=== PATIENT | female | born 1985 | race African-American/Black ===

== ENCOUNTER 2019-12-05 03:50 | Emergency (ER) | payer BC ==
[2019-12-05] MEDS ORDERED: Oseltamivir 75 MG Cap PO ONE (04:25)
[2019-12-05] MEDS ORDERED: FLU Vacc QS2019-20(6MOS+)/PF 60 MCG/0.5 ML SYRINGE IM ONE (04:30)
--- NOTE | 2019-12-05 04:39 | EDM.PDOC ---
ED HPI GENERAL MEDICAL PROBLEM - General Chief Complaint: General Stated Complaint: POSSIBLE INFLUENZA AND ITCHY Time Seen by Provider: 12/05/19 04:08 Source of Information: Reports: Patient History Limitations: Reports: No Limitations - History of Present Illness INITIAL COMMENTS - FREE TEXT/NARRATIVE: Ms. Carmichael is a very pleasant 34-year-old woman with a past medical history significant for generalized anxiety disorder, ordinarily on alprazolam 2 mg po prn, but out of them since 07/08/2019, who now presents to the ED with generalized pruritus that began around 22:30 to 23:00 tonight, followed by generalized body aches and nasal congestion around 01:30. She has had nausea, but no emesis, abdominal pain, abdominal cramps, or diarrhea. No ear or throat pain. No lip or tongue swelling. No dyspnea or wheezing. She took 25 mg of Benadryl around 23:00. The patient states that she had similar symptoms about 11 years ago, and was clinically diagnosed with influenza, although she recalls that she also had nausea, vomiting, and watery diarrhea at that time. The patient denies recent fever, chills, cough, dyspnea, chest pain, palpitations, nausea, vomiting, constipation, diarrhea, abdominal pain, urinary symptoms, recent weight gain or weight loss, recent bloody bowel movements or black bowel movements, recent joint aches, headaches, or rashes. Here in the ED, the patient is found to be slightly bradycardic at 56 bpm, otherwise, she is hemodynamically stable, afebrile, saturating 99% on room air. The patient does not have a PCP. She did not receive an influenza vaccine this season, but agreed to receive one here today. Generalized Pain Score (Numeric/FACES): 7 - Related Data Allergies Allergy/AdvReac Type Severity Reaction Status Date / Time cigarette smoke Allergy Difficulty Verified 12/05/19 03:59 Breathing latex Allergy Hives Verified 12/05/19 03:59 pineapple Allergy Hives Verified 12/05/19 03:59 Home Meds: Home Meds ALPRAZolam [Xanax] 0.5 mg PO ONCALL PRN 12/05/19 [History] Albuterol [Proventil HFA] 1 puff INH Q6H 12/05/19 [History] Oseltamivir [Tamiflu] 1 cap PO Q12H #9 cap 12/05/19 [Rx] diphenhydrAMINE [Benadryl] 25 mg PO ONCALL PRN 12/05/19 [History] Past Medical History Respiratory History: Reports: Asthma (PFT-proven) Musculoskeletal History: Reports: Back Pain, Chronic (scoliosis) Neurological History: Reports: Migraines Psychiatric History: Reports: Anxiety (untreated since 07/08/2019) - Past Surgical History HEENT Surgical History: Reports: Adenoidectomy, Tonsillectomy Social & Family History - Tobacco Use Smoking Status *Q: Never Smoker - Alcohol Use Alcohol Use History: Yes Alcohol Use Frequency: Rarely - Recreational Drug Use Recreational Drug Use: No - Living Situation & Occupation Living situation: Reports: Single, with Significant Other, with Family (3 kids) 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 ED EXAM, GENERAL - Physical Exam Exam: See Below Exam Limited By: No Limitations General Appearance: Alert, WD/WN, No Apparent Distress Eye Exam: Bilateral Eye: EOMI, Normal Inspection Ears: Normal External Exam, Normal Canal, Hearing Grossly Normal, Normal TMs Nose: Normal Inspection, Normal Mucosa, No Blood Throat/Mouth: Normal Inspection, Normal Lips (No swelling), Normal Teeth, Normal Gums, Normal Oropharynx (No tongue or uvular swelling), Normal Voice, No Airway Compromise Head: Atraumatic, Normocephalic Neck: Normal Inspection, Supple, Non-Tender, Full Range of Motion. No: Lymphadenopathy (L), Lymphadenopathy (R) Respiratory/Chest: No Respiratory Distress, Lungs Clear, Normal Breath Sounds, No Accessory Muscle Use. No: Decreased Breath Sounds, Crackles, Rhonchi, Wheezing, Stridor, Prolonged Expiration Cardiovascular: Normal Peripheral Pulses, Regular Rate, Rhythm, No Edema, No Gallop, No JVD, No Murmur, No Rub Peripheral Pulses: 4+: Radial (L), Radial (R) GI/Abdominal: Normal Bowel Sounds, Soft, Non-Tender, No Organomegaly, No Distention, No Abnormal Bruit, No Mass (Female) Exam: Deferred Rectal (Female) Exam: Deferred Back Exam: Normal Inspection, Full Range of Motion, NT Extremities: Normal Inspection, Normal Range of Motion, No Pedal Edema, Normal Capillary Refill Neurological: Alert, Oriented, Normal Cognition, No Motor/Sensory Deficits Psychiatric: Normal Affect Skin Exam: Warm, Dry, Intact, Normal Color, No Rash Course - Vital Signs Last Recorded V/S: Last Vital Signs Temp 36.4 C 12/05/19 04:00 Pulse 56 L 12/05/19 04:00 Resp 19 12/05/19 04:00 BP 131/81 12/05/19 04:00 Pulse Ox 99 12/05/19 04:00 - Orders/Labs/Meds Orders: Active Orders 24 hr Category Date Time Status Influenza Vaccine Charge [RC] .DISCHARGE Care 12/05/19 04:24 Active Meds: Medications Discontinued Medications Generic Name Dose Route Start Last Admin Trade Name Freq PRN Reason Stop Dose Admin Influenza Virus Vaccine 1 each 12/05/19 04:24 Pharmacy To Dose - Influenza Vaccine IM 12/05/19 04:25 ONETIME STA Influenza Virus Vaccine 60 mcg 12/05/19 04:30 12/05/19 04:51 Fluzone Quad Syringe IM 12/05/19 04:31 60 mcg .ONCE ONE Administration Oseltamivir Phosphate 75 mg 12/05/19 04:25 12/05/19 04:52 Tamiflu PO 12/05/19 04:26 75 mg ONETIME ONE Administration - Re-Assessments/Exams Free Text/Narrative Re-Assessment/Exam: 12/05/19 04:25 It is certainly possible that the patient has very early influenza. I have ordered an influenza swab, but primarily for epidemiologic purposes, not diagnosis, for if the patient has influenza, the influenza swab is often negative within the first 24 hours due to a low viral load. The patient is aware of this, but agreed to undergo the test anyway. I do not see an indication for any other testing, such as blood work or chest x-ray, given her lack of symptoms. Even if the influenza swab returns negative, we will start the patient on oral Tamiflu. 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 As soon as I mentioned this 3, the patient immediately agreed, stating that she has had itchiness when stressed or anxious in the past. While it would be inappropriate for me to prescribe Xanax for the patient, I can refer the patient to the clinic, where she can discuss treatment options for anxiety. 12/05/19 05:04 Test results discussed with the patient. Her influenza swab has returned negative. I will submit a prescription to complete a 5-day course of Tamiflu, and refer the patient to the clinic, where she can discuss treatment options for anxiety. She tells me that she is next working on 12/07/2019. She should not return to work if she begins coughing or sneezing. Departure - Departure Time of Disposition: 05:06 Disposition: Home, Self-Care 01 Condition: Good Clinical Impression: Influenza - Discharge Information *PRESCRIPTION DRUG MONITORING PROGRAM REVIEWED*: Not Applicable *COPY OF PRESCRIPTION DRUG MONITORING REPORT IN PATIENT TRACY: Not Applicable Referrals: Vivian Isidro PA-C [Physician Harvesting Supervisor] - Forms: ED Department Discharge Additional Instructions: You were seen in the emergency room after developing generalized itchiness, nasal congestion, and generalized body aches. Work-up in the ER included an influenza swab, which returned negative, however, as discussed, that does not necessarily mean that you do not have influenza. You have been started on the anti-influenza medicine Tamiflu, and a prescription for Tamiflu has been sent to the [facility], located in the [employer] store. Take 1 tablet of Tamiflu every 12 hours, starting this evening, 12/05/2019, as prescribed. You may take [id number] Tylenol or ibuprofen as needed for discomfort. Your generalized itchiness is likely due to idiopathic urticaria, also known as "stress hives". We recommend that you follow-up with CHARLES Blakely, or one of the other providers in the clinic, to discuss treatment options for anxiety. If any other problems, please do not hesitate to return to the ER. Sepsis Event Note - Evaluation Sepsis Screening Result: No Definite Risk - Focused Exam Vital Signs: Vital Signs Temp Pulse Resp BP Pulse Ox 12/05/19 04:00 36.4 C 56 L 19 131/81 99 Date Exam was Performed: 12/05/19 Time Exam was Performed: 05:04 - My Orders Last 24 Hours: My Active Orders 12/05/19 04:24 Influenza Vaccine Charge [RC] .DISCHARGE - Assessment/Plan Last 24 Hours: My Active Orders 12/05/19 04:24 Influenza Vaccine Charge [RC] .DISCHARGE
== END 2019-12-05 05:19 | disposition home or self-care (01) ==
LOC: JD.ED 03:50 → EDBD 03:50 → JD.ED 05:19
DX: J11.1 Influenza due to unidentified influenza virus with other respiratory manifestations (principal); Z88.8 Allergy status to other drugs, medicaments and biological substances; J45.909 Unspecified asthma, uncomplicated; Z23 Encounter for immunization; Z91.040 Latex allergy status; Z91.018 Allergy to other foods
CPT/HCPCS: 87804; 90471; 90686; 99283; A9270; G0008

== ENCOUNTER 2020-04-25 04:41 | Emergency (ER) | payer BC ==
--- NOTE | 2020-04-25 05:38 | EDM.PDOC ---
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 Some nausea and generally not feeling very good. Since that time the patient started having periods her periods of always been very regular even after childbirth. Her last period was 13 days late and much heavier than normal. And when she stands up she describes a pulling sensation during this period. Patient denies any possibility of as she is not been sexually active. Any fevers or chills she has had some nausea with this. But currently is minimally nauseated. The patient has had some left pelvic di scomfort with this. This is much different from her kidney stones. She does have a history of recurrent kidney stones. Pelvic Pain Score (Numeric/FACES): 7 - Related Data Allergies Allergy/AdvReac Type Severity Reaction Status Date / Time cigarette smoke Allergy Difficulty Verified 04/25/20 05:34 Breathing latex Allergy Hives Verified 04/25/20 05:34 pineapple Allergy Hives Verified 04/25/20 05:34 Home Meds: Home Meds ALPRAZolam [Xanax] 0.5 mg PO ONCALL PRN 12/05/19 [History] Past Medical History Respiratory History: Reports: Asthma (PFT-proven) Musculoskeletal History: Reports: Back Pain, Chronic (scoliosis) Other Musculoskeletal History: scoliosis Neurological History: Reports: Migraines Psychiatric History: Reports: Anxiety (untreated since 07/08/2019) - Past Surgical History HEENT Surgical History: Reports: Adenoidectomy, Tonsillectomy Social & Family History - Living Situation & Occupation Living situation: Reports: Single, with Significant Other, with Family (3 kids) 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 Denies: Chills HEENT: Reports: No Symptoms Respiratory: Reports: No Symptoms Cardiovascular: Reports: No Symptoms GI/Abdominal: Reports: Nausea. Denies: Constipation, Diarrhea : Denies: Flank Pain, Frequency Musculoskeletal: Reports: No Symptoms Skin: Reports: No Symptoms Neurological: Reports: No Symptoms ED EXAM, GENERAL - Physical Exam Exam: See Below Exam Limited By: No Limitations General Appearance: Alert, No Apparent Distress Head: Atraumatic, Normocephalic Neck: Normal Inspection, Supple, Non-Tender, Full Range of Motion Respiratory/Chest: No Respiratory Distress, Lungs Clear, Normal Breath Sounds Cardiovascular: Regular Rate, Rhythm, No Edema, No Murmur GI/Abdominal: Normal Bowel Sounds, Soft, Tender (Left lower pelvic discomfort with palpation no other abdominal or pelvic tenderness appreciated no rigidity rebound or guarding noted) Back Exam: Normal Inspection. No: CVA Tenderness (L), CVA Tenderness (R) Extremities: Normal Inspection, No Pedal Edema Neurological: Alert, Oriented, CN II-XII Intact, Normal Cognition, Normal Gait, Normal Reflexes, No Motor/Sensory Deficits Course - Vital Signs Last Recorded V/S: Last Vital Signs Temp 36.4 C 04/25/20 05:31 Pulse 88 04/25/20 05:31 Resp 16 04/25/20 05:31 BP 108/76 04/25/20 05:31 Pulse Ox 100 04/25/20 05:31 - Orders/Labs/Meds Labs: Laboratory Tests 04/25/20 04/25/20 04/25/20 Range/Units 06:10 06:10 06:10 WBC 5.84 (3.98-10.04) K/mm3 RBC 4.31 (3.98-5.22) M/mm3 Hgb 11.8 (11.2-15.7) gm/dl Hct 37.8 (34.1-44.9) % MCV 87.7 (79.4-94.8) fl MCH 27.4 (25.6-32.2) pg MCHC 31.2 L (32.2-35.5) g/dl RDW Std Deviation 46.2 (36.4-46.3) fL Plt Count 293 (182-369) K/mm3 MPV 10.7 (9.4-12.3) fl Neut % (Auto) 58.6 (34.0-71.1) % Lymph % (Auto) 27.7 (19.3-51.7) % [place] % (Auto) 8.7 (4.7-12.5) % Eos % (Auto) 4.6 (0.7-5.8) Baso % (Auto) 0.2 (0.1-1.2) % Neut # (Auto) 3.42 (1.56-6.13) K/mm3 Lymph # (Auto) 1.62 (1.18-3.74) K/mm3 [place] # (Auto) 0.51 H (0.24-0.36) K/mm3 Eos # (Auto) 0.27 (0.04-0.36) K/mm3 Baso # (Auto) 0.01 (0.01-0.08) K/mm3 Sodium 141 (136-145) mEq/L Potassium 4.1 (3.5-5.1) mEq/L Chloride 107 (98-107) mEq/L Carbon Dioxide 27 (21-32) mEq/L Anion Gap 11.1 (5-15) BUN 8 (7-18) mg/dL Creatinine 1.0 (0.55-1.02) mg/dL Est Cr Clr Drug Dosing TNP Estimated GFR (MDRD) > 60 (>60) mL/min BUN/Creatinine Ratio 8.0 L (14-18) Glucose 91 (74-106) mg/dL Calcium 8.5 (8.5-10.1) mg/dL Total Bilirubin 0.5 (0.2-1.0) mg/dL AST 20 (15-37) U/L ALT 20 (14-59) U/L Alkaline Phosphatase 60 (46-116) U/L Total Protein 7.9 (6.4-8.2) g/dl Albumin 3.5 (3.4-5.0) g/dl Globulin 4.4 gm/dL Albumin/Globulin Ratio 0.8 L (1-2) HCG, Qual Negative (NEGATIVE) Urine Color (Yellow) Urine Appearance (Clear) Urine pH (5.0-8.0) Ur Specific [place] (1.005-1.030) Urine Protein (Negative) Urine Glucose (UA) (Negative) Urine Ketones (Negative) Urine Occult Blood (Negative) Urine Nitrite (Negative) Urine Bilirubin (Negative) Urine Urobilinogen (0.2-1.0) Ur Leukocyte Esterase (Negative) Urine RBC (0-5) /hpf Urine WBC (0-5) /hpf Ur Squamous Epith Cells (0-5) /hpf Urine Bacteria (FEW) /hpf Urine Mucus (FEW) /hpf 04/25/20 Range/Units 06:30 WBC (3.98-10.04) K/mm3 RBC (3.98-5.22) M/mm3 Hgb (11.2-15.7) gm/dl Hct (34.1-44.9) % MCV (79.4-94.8) fl MCH (25.6-32.2) pg MCHC (32.2-35.5) g/dl RDW Std Deviation (36.4-46.3) fL Plt Count (182-369) K/mm3 MPV (9.4-12.3) fl Neut % (Auto) (34.0-71.1) % Lymph % (Auto) (19.3-51.7) % [place] % (Auto) (4.7-12.5) % Eos % (Auto) (0.7-5.8) Baso % (Auto) (0.1-1.2) % Neut # (Auto) (1.56-6.13) K/mm3 Lymph # (Auto) (1.18-3.74) K/mm3 [place] # (Auto) (0.24-0.36) K/mm3 Eos # (Auto) (0.04-0.36) K/mm3 Baso # (Auto) (0.01-0.08) K/mm3 Sodium (136-145) mEq/L Potassium (3.5-5.1) mEq/L Chloride (98-107) mEq/L Carbon Dioxide (21-32) mEq/L Anion Gap (5-15) BUN (7-18) mg/dL Creatinine (0.55-1.02) mg/dL Est Cr Clr Drug Dosing Estimated GFR (MDRD) (>60) mL/min BUN/Creatinine Ratio (14-18) Glucose (74-106) mg/dL Calcium (8.5-10.1) mg/dL Total Bilirubin (0.2-1.0) mg/dL AST (15-37) U/L ALT (14-59) U/L Alkaline Phosphatase (46-116) U/L Total Protein (6.4-8.2) g/dl Albumin (3.4-5.0) g/dl Globulin gm/dL Albumin/Globulin Ratio (1-2) HCG, Qual (NEGATIVE) Urine Color Lynne H (Yellow) Urine Appearance Slt cloudy H (Clear) Urine pH 6.0 (5.0-8.0) Ur Specific [place] > or = 1.030 (1.005-1.030) Urine Protein 2+ H (Negative) Urine Glucose (UA) Negative (Negative) Urine Ketones Negative (Negative) Urine Occult Blood 3+ H (Negative) Urine Nitrite Negative (Negative) Urine Bilirubin 1+ H (Negative) Urine Urobilinogen 0.2 (0.2-1.0) Ur Leukocyte Esterase Negative (Negative) Urine RBC 30-40 H (0-5) /hpf Urine WBC 0-5 (0-5) /hpf Ur Squamous Epith Cells 10-20 H (0-5) /hpf Urine Bacteria Moderate H (FEW) /hpf Urine Mucus Many H (FEW) /hpf - Re-Assessments/Exams Free Text/Narrative Re-Assessment/Exam: 04/25/20 06:06 I have ordered some labs and an hCG. She has mild nausea at this point but does not want to take anything for it yet. 04/25/20 07:31 Labs nondiagnostic hCG is negative urine has lots of red cells in it which was expected but not suggestive of infectious process. I discussed the situation with Dr. Breen artist color separation for OB who will see the patient in her office we will obtain a outpatient ultrasound. Departure - Departure Time of Disposition: :31 Disposition: Home, Self-Care 01 Clinical Impression: Irregular periods, Pelvic pain - Discharge Information Referrals: PCP,None [Primary Care Provider] - Clara Gillette MD [Physician] - Forms: ED Department Discharge, ED Return to Work/School Form Additional Instructions: Return to the emergency room with any questions problems or worsening symptoms. Call Dr. Breen's office and schedule an appointment after the ultrasound is done. You should be contacted by radiology to schedule a pelvic ultrasound as we discussed. Sepsis Event Note (ED) - Evaluation Sepsis Screening Result: No Definite Risk - Focused Exam Vital Signs: Vital Signs Temp Pulse Resp BP Pulse Ox 04/25/20 05:31 36.4 C 88 16 108/76 100
== END 2020-04-25 07:45 | disposition home or self-care (01) ==
LOC: JD.ED 04:41
DX: N92.6 Irregular menstruation, unspecified (principal); Z91.040 Latex allergy status; Z91.018 Allergy to other foods; Z91.09 Other allergy status, other than to drugs and biological substances; Z90.49 Acquired absence of other specified parts of digestive tract; Z98.890 Other specified postprocedural states
CPT/HCPCS: 36415; 80053; 81001; 84703; 85025; 99282; 99284